=== PATIENT | female | born 1965 | race Hispanic/Latino ===

== ENCOUNTER 2025-02-24 16:02 | Observation (INO) | payer BC ==
[~2025-02-24] VITALS: Ht 162.6 cm; Wt 67.4 kg
--- NOTE | 2025-02-24 16:45 | ERN ---
ED Note History of Present Illness Stated Complaint: ABDOMINAL PAIN Chief Complaint: Abdominal Pain Time Seen by MD: 16:09 Dictation: PATIENT IS A 60-YEAR-OLD FEMALE COMING IN TODAY WITH COMPLAINTS OF ACUTE ONSET OF EPIGASTRIC PAIN THAT RADIATES TO BILATERAL UPPER AND LOWER QUADRANTS, ONSET WAS YESTERDAY WHILE SHE WAS [place] [facility] [place] STATES SHE LEFT PANAMA AND DROVE TO THE [facility] AND THE PAIN CONTINUED TO GET WORSE. SHE DENIES CHEST PAIN BACK PAIN NO SOB. STATES SHE DOES HAVE A HISTORY OF DIVERTICULOSIS. HAS NOT TAKEN ANYTHING PRIOR TO ARRIVAL FOR PAIN IS ONLY HERE VISITING, LIVES IN [place]. Allergies: Coded Allergies: codeine (Unverified Allergy, Unknown, ITCHING, 02/24/25) Home Meds Active Scripts Cefdinir (Cefdinir) 300 Mg Capsule, 1 CAP PO BID for 5 Days, #10 CAP 0 Refills Prov:DAREN RICHARDSON [employer]ES [employer]SULT[employer] 02/26/25 Reported Medications Rosuvastatin Calcium (Rosuvastatin Calcium) 10 Mg Tablet, 10 MG PO HS, TAB 02/24/25 Past Medical History Past Medical History: No Pertinent History Surgical History: Hysterectomy, BTL Surgical History Other: NECK CYST REMOVAL, BREAST IMPLANTS History: Not Applicable RN Note Reviewed/Agreed w/PFSH: Yes Review of System Dictation CONSTITUTIONAL: NEGATIVE EXCEPT FOR HPI HEAD/FACE: NEGATIVE EXCEPT FOR HPI EENT: NEGATIVE EXCEPT FOR HPI RESPIRATORY: NEGATIVE EXCEPT FOR HPI GASTROINTESTINAL/ABDOMINAL: NEGATIVE EXCEPT FOR HPI EPIGASTRIC PAIN THAT RADIA SALAS TO BILATERAL UPPER AND LOWER QUADRANTS GENITOURINARY: NEGATIVE EXCEPT FOR HPI MUSCULOSKELETAL: NEGATIVE EXCEPT FOR HPI INTEGUMENTARY: NEGATIVE EXCEPT FOR HPI NEUROLOGICAL/PSYCH: NEGATIVE EXCEPT FOR HPI HEMATOLOGIC/LYMPHATIC: NEGATIVE EXCEPT FOR HPI ALL SYSTEMS NEGATIVE, EXCEPT NOTED ABOVE. 13 POINT REVIEW OF SYSTEMS ASSESSED AND ALL NEGATIVE EXCEPT FOR ABOVE. Initial Vital Sign VS Vital Signs Date Time Temp Pulse Resp B/P (MAP) Pulse Ox O2 Delivery O2 Flow Rate FiO2 02/24/25 16:17 97.5 68 18 105/68 100 Room Air 0 02/24/25 16:40 21 Physical Exam Dictation VITAL SIGNS REVIEWED GENERAL APPEARANCE: ALERT, ORIENTED X 3, MODERATE ACUTE DISTRESS, WELL DEVELOPED, NOURISHED. HEAD AND FACE: NON-TRAUMATIC. EYES: PERRL, PINK CONJUNCTIVAS, EYELID NO TRAUMA, ANTERIOR CHAMBER WITH ARCUS SENILIS. EARS: PINNAS INTACT AND NO SIGNS OF TRAUMA OR ERYTHEMA EAR CANALS CLEAR AND NO DISCHARGE TM NO ERYTHEMA NOSE: NO DISCHARGE, NO BLEEDING. OROPHARYNX: MOUTH NORMAL, TONGUE PINK, PHARYNX CLEAR,NO ERYTHEMA, TONSILS NO EXUDATES, NO ABSCESSES NOTED, MUCOUS MEMBRANE MOIST NECK: SUPPLE, NON-TENDER, NO THYROMEGALY, NO MASSES, NO JVD, NO BRUITS BREAST:DEFERRED CHEST:NO TENDERNESS, NO CREPITUS, NO PARADOXICAL MOVEMENT, NO RETRACTIONS LUNGS:CLEAR, WELL-VENTILATED, SYMMETRIC, NO RALES, NO WHEEZING, NO RHONCHI, NO STRIDOR, GOOD BREATH SOUNDS BILATERALLY HEART: REGULAR RATE, REGULAR RHYTHM, NO MURMUR, NO GALLOPS VASCULAR: NO PERIPHERAL EDEMA, ABDOMEN: SOFT, POSITIVE BOWEL SOUNDS, NONDISTENDED, NO GUARDING, MODERATE EPIGASTRIC AND LEFT LOWER QUADRANT PAIN TENDERNESS WITH PALPATION. RECTAL: DEFERRED GENITAL: DEFERRED NEUROLOGICAL: NORMAL SPEECH, MOTOR FUNCTION INTACT, SENSORY FUNCTION INTACT MUSCULOSKELETAL: NECK NONTENDER, FULL RANGE OF MOTION, BACK NONTENDER, FULL RANGE OF MOTION, EXTREMITIES: NONTENDER, FULL RANGE OF MOTION SKIN: COLOR PINK, DRY, NO TURGOR, NO RASH, NO LACERATIONS, NO ABRASIONS, NO CONTUSIONS. LYMPHATIC: DEFERRED Results (Laboratory/Radiology) Laboratory/Radiology PATIENT: EJ DOMÍNGUEZ MR#: [id number] : 1965 SEX: F AGE: 60 LOCATION: [facility] ORDER [id number] STATUS: [facility] REPORT#: [id number] SERVICE 1642 REASON: EPIGASTRIC AND LEFT LOWER QUADRANT PAIN. HISTORY OF DIVERTICULITIS ORDERING PHYSICIAN: BUBBA DANGELO NP PROCEDURE: ABD PEL W - CT ABDOMEN/PELVIS W/CONTRAST CT ABDOMEN/PELVIS W/CONTRAST CLINICAL HISTORY: EPIGASTRIC AND LEFT LOWER QUADRANT PAIN. HISTORY OF DIVERTICULITIS COMPARISON: None TECHNIQUE: Sequential axial images of abdomen and pelvis with 75 mL of Omnipaque 350 IV contrast with sagittal and coronal reconstructions. CT was performed with one or more of the following dose reduction techniques: automated exposure control, adjustment of the mA and/or kV according to patient size, or use of iterative reconstruction technique. FINDINGS: There is mild dependent atelectasis in lung bases. The liver and spleen gallbladder pancreas and adrenal glands and kidneys and bladder are unremarkable. There is no identified bowel obstruction. There is moderate fecal material in the colon. The appendix is grossly enlarged but appears to be fecal filled with no adjacent inflammatory stranding or obvious wall and flanks. There are scattered sigmoid colon diverticula with no acute inflammatory changes. The uterus is surgically absent. Incidental note is made of bilateral gluteal implants. There is no free air or free fluid. There is no bulky abdominal or retroperitoneal lymphadenopathy. Note is made of bilateral pars defects at L5 with grade 1 anterolisthesis of L5 on S1. IMPRESSION: Constipation. Mild sigmoid diverticulosis. Change prior hysterectomy. Bilateral gluteal implants. Grossly enlarged but the fecal filled appendix with no adjacent inflammatory stranding to suggest acute appendicitis. Labs Reviewed?: Yes EKG Comment: EKG sinus bradycardia/heart rate 54/axis normal/no ectopy ED Course ED Course 1850/patient remains acutely tender to periumbilical and right lower quadrant [place]. A [id number] demonstrates a grossly enlarged appendix without stranding. We will give Zosyn 3.375 and we will follow up with Dr. Kiki Sher/general surgeon. 1899/spoke with , reviewed labs physical exam and CT. He said to treat as acute appendicitis recommended broad-spectrum antibiotics, NPO after midnight and anticipate appendectomy in the morning. This was expressed to patient and she agreed with care 1914/spoke with Demian Zuleta [facility] hospitalist and reviewed CAT scans labs and my discussion with the surgeon he agreed to admit. Medical Decision Making MDM MDM: Differential diagnosis: Gastritis versus diverticulitis/pancreatitis/appendicitis/urinary tract infection/hernia/electrolyte imbalance/dehydration/ACS/AMI Rationale: Tests considered and ordered secondary to shared decision making include: labs, ECG and radiology Previous outside records reviewed: Old ER visits. Risk of complication and/or morbidity or mortality of patient management: Moderate Medications-Per medication reconciliation Need for hospitalization: Patient does meet criteria for hospitalization. Patie nt will need acute appendectomy tomorrow Need for emergency major/minor surgery: Acute appendectomy tomorrow There are no social concerns with this patient. Prescription drug management Prescriptions will include symptomatic care Patient's prior external medical records from other ER visits were reviewed by me as indicated. Prior testing and results from previous visits were reviewed. Prior tests were taken into account with medical decision making and resource utilization, independent historian/historians were used to obtain complete medical history. I independently interpreted the test that were performed, results were reviewed by me and considered findings on radiology if ordered. Medical management and examination interpretation discussions were had by me with other qualified healthcare professionals as indicated for the patient's care. DX & DISP Disposition: Inpatient Decision to Admit Time: 19:06 Departure Impression: Primary Impression: Acute appendicitis Condition: Stable Scripts Cefdinir (Cefdinir) 300 Mg Capsule 1 CAP PO BID for 5 Days, #10 CAP 0 Refills Prov: DAREN RICHARDSON NP 02/26/25 Time of Disposition: 19:08 I have reviewed the case, and I agree with, Diagnosis and Plan I performed the substantive portion of the visit. I have reviewed and personally made and approve the management plan that is documented in the notes by myself or the THELMA. I acknowledge full responsibility for the patient's management plan. BUBBA DANGELO NP Feb 24, 2025 16:45 GAURAV RICHARDS MD Mar 06, 2025 18:42
--- NOTE | 2025-02-24 16:50 | NUR ---
PENDING GFR RESULTS, IV SITE, & CONSENT FOR CT EXAM.
[2025-02-24] MEDS: 0.9%NACL 1000ML 1,000 ML IV ONE (16:58)
[2025-02-24] MEDS: FAMOTIDINE 20MG TAB PO ONE (16:58)
[2025-02-24] MEDS: ketOROlac 30MG VIAL (30MG/ML) IVP ONE (16:58)
[2025-02-24 17:01] LABS: APPEARANCE,URINE CLEAR (CLEAR); BILIRUBIN,URINE NEGATIVE (NEGATIVE); COLOR,URINE YELLOW (YELLOW); GLUCOSE, URINE (UA) NEGATIVE (NEGATIVE); KETONES,URINE NEGATIVE (NEGATIVE); LEUKOCYTE ESTERASE ,URINE 75 Leu/uL (NEGATIVE); NITRATE,URINE NEGATIVE (NEGATIVE); OCCULT BLOOD,URINE NEGATIVE (NEGATIVE); PH,URINE 5.5 (5.0-8.0); PROTEIN,URINE NEGATIVE (NEGATIVE); UROBILINOGEN,URINE 0.2 mg/dL (0.2-1.0)
[2025-02-24 17:01] LABS: BASOPHILS # (AUTO) 0.04 K/uL (0.00-0.20); BASOPHILS % (AUTO) 0.4 % (0.0-5.0); HEMATOCRIT 35.9 % (36-48); IMMATURE GRANULOCYTE ABSOLUTE 0.03 K/uL (0-1); LYMPHOCYTES # (AUTO) 2.8 K/uL (1.0-4.8); LYMPHOCYTES % (AUTO) 27.5 % (21.0-51.0); MEAN CORPUSCULAR HEMOGLOBIN 30.1 pg (27.0-33.0); MEAN CORPUSCULAR HGB CONC 33.1 g/dL (32.0-36.0); MEAN CORPUSCULAR VOLUME 90.9 fL (79-99); MONOCYTES # (AUTO) 0.5 K/uL (0.1-1.0); MONOCYTES % (AUTO) 4.8 % (3.0-13.0); NEUTROPHILS # (AUTO) 6.7 K/uL (1.8-7.7); PLATELET COUNT (AUTO) 207 K/uL (130-400); RED BLOOD CELL COUNT(AUTO) 3.95 MIL/uL (4.00-5.50); RED CELL DISTRIBUTION WIDTH 13.2 % (11.0-15.5); WHITE BLOOD COUNT (AUTO) 10.2 K/uL (4.8-10.8)
[2025-02-24 17:03] LABS: ADD UA MICROSCOPIC YES
[2025-02-24] MEDS ORDERED: IOHEXOL-350 75 ML VIAL IV ONE (17:03)
[2025-02-24 17:05] LABS: BACTERIA,URINE RARE /HPF (None Seen); MUCUS,URINE FEW LPF (None Seen); SQUAMOUS EPITHELIAL CELL,UR RARE /HPF (0-2)
[2025-02-24 17:09] LABS: CREATININE 0.7 mg/dL (0.5-1.0); POTASSIUM 3.8 mmol/L (3.5-5.1)
--- NOTE | 2025-02-24 18:40 | HMCIMG ---
CT ABDOMEN/PELVIS W/CONTRAST CLINICAL HISTORY: EPIGASTRIC AND LEFT LOWER QUADRANT PAIN. HISTORY OF DIVERTICULITIS COMPARISON: None TECHNIQUE: Sequential axial images of abdomen and pelvis with 75 mL of Omnipaque 350 IV contrast with sagittal and coronal reconstructions. CT was performed with one or more of the following dose reduction techniques: automated exposure control, adjustment of the mA and/or kV according to patient size, or use of iterative reconstruction technique. FINDINGS: There is mild dependent atelectasis in lung bases. The liver and spleen gallbladder pancreas and adrenal glands and kidneys and bladder are unremarkable. There is no identified bowel obstruction. There is moderate fecal material in the colon. The appendix is grossly enlarged but appears to be fecal filled with no adjacent inflammatory stranding or obvious wall and flanks. There are scattered sigmoid colon diverticula with no acute inflammatory changes. The uterus is surgically absent. Incidental note is made of bilateral gluteal implants. There is no free air or free fluid. There is no bulky abdominal or retroperitoneal lymphadenopathy. Note is made of bilateral pars defects at L5 with grade 1 anterolisthesis of L5 on S1. IMPRESSION: Constipation. Mild sigmoid diverticulosis. Change prior hysterectomy. Bilateral gluteal implants. Grossly enlarged but the fecal filled appendix with no adjacent inflammatory stranding to suggest acute appendicitis.
[2025-02-24] MEDS: morPHINE 2 MG SYG IVP ONE (18:46)
[2025-02-24] MEDS ORDERED: hydrALAZine 20MG/ML VIAL IV PRN (19:30)
[2025-02-24] MEDS ORDERED: acetaMINOPHEN 650 MG SUPPOSITORY RC PRN (19:30)
[2025-02-24] MEDS ORDERED: ondanSETRON 4MG INJ IV PRN (19:30)
--- NOTE | 2025-02-24 19:42 | HP ---
History of Present Illness Reason for Visit: abdominal pain History of Present Illness Ms. Moreno is a 60-year-old female that was seen and examined today on 02/24/2025. Patient is a good historian of personal health. Patient states that she came to the emergency department with a chief complaint of abdominal pain. Onset was 02/23/2025 at 8:00 p.m.. Location initially was periumbilical but pain traveled down to right lower quadrant. Duration is on a nd off. Character is described as a dull ache that turned into a sharp pain. Symptoms are aggravated with movement. There was no alleviating factors. Patient reports associated nausea without any vomiting. Today in the emergency department CBC unremarkable, chemistry unremarkable, urinalysis positive for leukocyte esterase and WBCs 2-5, CT of abdomen and pelvis shows constipation, acute appendicitis. Emergency room physician contacted general surgeon on-call who requested patient be [facility]. Follows for surgical intervention tomorrow 02/25/2025. Past Medical History ADDITIONAL PAST MEDICAL HISTORY: [Denies] SOCIAL HISTORY: [Patient smokes one pack of cigarettes daily and has been smoking like this for 35 years. Patient drinks alcohol about once a week usually one vodka martini. Patient denies drug use. Patient lives with the Gian moreno. Patient has good access to health care through her insurance. Patient denies difficulty paying her bills. Patient is retired from the [employer].] SURGICAL HISTORY: [Hysterectomy, BTL, gluteal implants, abdominoplasty, liposuction, right wrist surgery, neck cyst excision] Review of Systems General: No Fever, No Chills, No Night Sweats, No Fatigue, No Malaise, No Appetite, No Other HEENT: No Head Aches, No Visual Changes, No Eye Pain, No Ear Pain, No Dysphasia, No Sinus Congestion, No Post Nasal Drip, No Sore Throat, No Other Pulmonary: No Dyspnea, No Cough, No Pleuritic Chest Pain, No Other Cardiovascular: No: Chest Pain, Palpitations, Orthopnea, Paroxysmal Noc. Dyspnea, Edema, Lt Headedness, Other Gastrointestinal: Nausea, Abdominal Pain; No: Vomiting, Diarrhea, Constipation, Melena, Hematochezia, Other Genitourinary: No Dysuria, No Frequency, No Incontinence, No Hematuria, No Retention, No Other Musculoskeletal: No: other, neck pain, shoulder pain, arm pain, back pain, hand pain, leg pain, foot pain Skin: No Urticaria, No Rash, No Other Neurological: No: Weakness, Numbness, Incoordination, Change in speech, Confusion, Seizures, Other Allergies: Coded Allergies: codeine (Unverified Allergy, Unknown, ITCHING, 02/24/25) Scheduled Rosuvastatin Calcium (Rosuvastatin Calcium), 10 MG PO HS, (Reported) Exam Vital Signs Vital Signs Date Time Temp Pulse Resp B/P (MAP) Pulse Ox O2 Delivery O2 Flow Rate FiO2 02/24/25 16:40 98.2 65 16 108/64 99 Room Air* 0 21 General Appearance: Alert, Oriented X3, Cooperative, mild distress HEENT: Atraumatic, EOMI Respiratory: Clear to auscultation, Normal air movement, NL respiratory effort Cardiovascular: Regular rate, Regular rhythm, Normal S1, Normal S2 Abdominal: Normal bowel sounds, Soft, Other (Positive right lower quadrant tenderness) Extremities: No clubbing, No edema Skin: No rashes, No breakdown, No significant lesion Neuro: Normal gait, Normal speech, Strength at 5/5 X4 ext, Sensation intact, Cranial nerves 3-12 NL Psych/Mental Status: Mental status NL, Mood NL, Thoughts/Content NL Assessment/Plan ASSESSMENT: [ Acute appendicitis, POA Suspected UTI, POA Constipation, POA Tobacco dependence, POA] PLAN: [ Admit patient to medical floor. Patient will be followed by General surgery Service. Keep patient NPO. Check preprocedure labs, CBC, BMP, magnesium, phosphorus, PTT, UA, type and screen, EKG, CXR IV fluid maintenance therapy lactated Ringer's at 75 mL/HR Empiric antibiotic therapy with Zosyn Check urine culture, follow up with the results Enemas twice daily Consult patient on smoking cessation. Offered patient transdermal nicotine patch which she declined at this time but states she might be more receptive to it if she has to be admitted more days. GI prophylaxis, famotidine DVT prophylaxis, Yoseph's and SCDs avoid anticoagulation at this time due to impending surgical evaluation. ADVANCED CARE PLANNING 1. Which of the following were discussed? Hospice Care - Yes Therapeutic options - Yes Advance Directives - Yes -patient states she does not have any advance directives in place at this time, however has been Gian can make decisions for her if she becomes unable. Other discussions - patient wishes to remain a full code at this time 2. Discussed with who? Patient 3. Voluntary nature of this service was explained to the patient? Yes 4. Amount of time spent - ___ 16 minutes ____ 5. Reviewed by Physician? (if this service was performed by NPP) Yes This document was generated in part using voice recognition software, occasional wrong word or sound alike substitutions may have occurred due to the inherent limitations of voice recognition software. Read the chart carefully and recognize using context, where the substitutions have occurred. Although every effort was made to edit the content, gifts officer and typing errors may occur ATTESTATION BY PHYSICIAN I have seen and examined the patient. I reviewed the documentation, medical decision making, and treatment plan as noted by the mid-level provider above. I agree with the findings and plan of care. ERLINDA LANDERS [facility] Feb 24, 2025 19:42
[2025-02-24] MEDS: ZOSYN 3.375GM +NS 50ML IVPB ONE (20:06)
[2025-02-24] MEDS: ZOSYN 3.375GM +NS 50ML IV SCH (20:10)
[2025-02-24] MEDS: LACTATED RINGERS 1000ML 1,000 ML IV SCH (20:14)
[2025-02-24 21:00] VITALS: BP 99/49; PULSE 49; RESP 18; TEMP 98
[2025-02-24] MEDS ORDERED: ROSU10TA72 PO (21:23)
--- NOTE | 2025-02-24 21:30 | NUR ---
T[employer] ENEMAS PT GIVEN ENEMA HAD 4 BOWEL MOVEMENTS.
[2025-02-24 23:57] VITALS: BP 98/47; PULSE 51; RESP 18; TEMP 97.7
[2025-02-25] VITALS (30 sets, daily range): BP systolic 90–139; BP diastolic 35–82; PULSE 42–68; RESP 13–22; TEMP 97–98.2; O2SAT 96–97
[2025-02-25] MEDS ORDERED: morPHINE 2 MG SYG IVP PRN
[2025-02-25] MEDS ORDERED: hydroMORPHone 0.5 MG SYG (0.5MG/0.5ML) IVP PRN (01:00)
[2025-02-25 06:33] LABS: BASOPHILS # (AUTO) 0.02 K/uL (0.00-0.20); BASOPHILS % (AUTO) 0.4 % (0.0-5.0); EOSINOPHILS # (AUTO) 0.08 K/uL (0.00-0.70); EOSINOPHILS % (AUTO) 1.5 % (0.0-8.0); HEMATOCRIT 32.5 % (36-48); IMMATURE GRANULOCYTE ABSOLUTE 0.01 K/uL (0-1); LYMPHOCYTES # (AUTO) 2.4 K/uL (1.0-4.8); LYMPHOCYTES % (AUTO) 44.1 % (21.0-51.0); MEAN CORPUSCULAR HEMOGLOBIN 30.4 pg (27.0-33.0); MEAN CORPUSCULAR HGB CONC 33.5 g/dL (32.0-36.0); MEAN CORPUSCULAR VOLUME 90.5 fL (79-99); MONOCYTES # (AUTO) 0.3 K/uL (0.1-1.0); NEUTROPHILS # (AUTO) 2.6 K/uL (1.8-7.7); NEUTROPHILS % (AUTO) 47.8 % (40.0-77.0); PLATELET COUNT (AUTO) 161 K/uL (130-400); RED BLOOD CELL COUNT(AUTO) 3.59 MIL/uL (4.00-5.50); RED CELL DISTRIBUTION WIDTH 13.2 % (11.0-15.5); WHITE BLOOD COUNT (AUTO) 5.5 K/uL (4.8-10.8)
[2025-02-25 06:41] LABS: CREATININE 0.7 mg/dL (0.5-1.0); MAGNESIUM 1.8 mg/dL (1.80-2.40); PHOSPHORUS 3.6 mg/dL (2.5-4.9); POTASSIUM 3.7 mmol/L (3.5-5.1)
[2025-02-25 06:43] LABS: PROTHROMBIN TIME 10.6 SEC (9.6-11.6)
[2025-02-25 06:44] LABS: PARTIAL THROMBOPLASTIN TIME 29.9 SEC (26.3-35.5)
--- NOTE | 2025-02-25 07:55 | EKG ---
[facility] Test Date: 2025-02-24 Test Time: 17:12:46 Pat Name: EJ DOMÍNGUEZ Department: [facility] Room: 309 1 Gender: F Toddler Caregiver: [id number] : 1965 Requested By: BUBBA DANGELO Order Number: [id number] Reading MD: Ashley Barnard Measurements Intervals [place] Rate: 54 P: 29 AK: 158 QRS: -18 QRSD: 75 T: -2 QT: 451 QTc: 427 Interpretive Statements Sinus rhythm No previous ECG available for comparison Electronically Signed On 02-25-2025 12:27:16 CDT by Ashley Barnard Please click the below link to view image of tracing.
[2025-02-25] MEDS: FAMOTIDINE 20MG VIAL IV SCH (09:16)
[2025-02-25] MEDS: ketOROlac 15MG/ML VIAL (15MG/ML) IV PRN (09:17)
--- NOTE | 2025-02-25 09:17 | PN ---
[facility] PROGRESS NOTE Date of Service: Feb 25, 2025 Time of Service: 09:10 SUBJECTIVE: [ ] This is a 60-year-old female that was admitted on 02/24/2025 presents in ED with chief complaint of abdominal pain location. Umbilical radiates to left lower quad. ER workup imaging reveal acute appendicitis. General surgeon was evaluated by surgeon we will scheduled for lap appendectomy. REVIEW OF SYSTEMS CONSTITUTIONAL: Denies fevers, chills, or night sweats. No unintentional weight loss reported. NEUROLOGICAL: Denies headache, amaurosis fugax, motor weakness, sensory defic it, vertigo/spinning sensation, gait abnormalities, or tremors. ENT: No hearing loss, otalgia, otorrhea, rhinitis, rhinorrhea, hoarseness, or sore throat. CARDIOVASCULAR: Denies any exertional angina, dyspnea on exertion, orthopnea, paroxysmal nocturnal dyspnea, palpitations, life-threatening arrhythmias, claudication. PULMONARY: Denies any shortness of breath, cough, phlegm/sputum, hemoptysis, pleuritic chest pain. SLEEP: Denies morning headaches, daytime somnolence or napping. Denies difficulty falling asleep, staying asleep, waking from sleep. Denies knowledge of snoring. GASTROINTESTINAL: Denies any type of dysphagia to either liquids or solids. Denies nausea, vomiting, pyrosis, early satiety, abdominal pain, diarrhea, constipation, or changes in stool consistency or caliber. Denies coffee-ground emesis, hematemesis, hematochezia, or melanotic stools. GENITOURINARY: Denies frequency, urgency, nocturia, hematuria or incontinence (Storage/Irritative symptoms.) Low urinary stream, straining to void, urinary intermittency or hesitancy, splitting of the voiding stream, terminal dribbling. ENDOCRINOLOGIC: Denies polyuria, polydipsia, polyphagia or heat/cold intolerances. HEMATOLOGIC: Denies thrombophilia/previous clots, or coagulopathy/bleeding disorders. ONCOLOGIC: Denies personal history of malignancy. DERMATOLOGIC: Denies rashes or pruritus. PSYCHIATRIC: Denies any suicidal or homicidal ideation. Denies hallucinations. PHYSICAL EXAM GENERAL APPEARANCE: The patient is awake, alert, and oriented, in no acute cardiopulmonary distress. NEUROLOGICAL: Cranial nerves II-XII grossly intact. Motor is 5/5 in bilateral upper and lower extremities proximal to distal. No sensory deficits. HEENT: Face is symmetric. Pupils are equal and reactive. Extraocular movements are intact. NECK: Supple. No JVD. No thyromegaly. No submental, submandibular, pre- /postauricular, occipital or supraclavicular lymphadenopathy. CHEST: Normal chest expansion. No Telemetry. LUNGS: Absence of any rales, rhonchi or any wheezing. CARDIOVASCULAR: Regular. S1 and S2 normal. No appreciable rubs, murmurs or gallops. ABDOMEN: Soft, nontender, and nondistended. There is no rebound, voluntary guarding, or rigidity. : Deferred. No Louise. EXTREMITIES: Non-edematous and not cyanotic. No clubbing. Good capillary refill. SKIN: No skin breakdown. Vital Signs (last 8hr) Date Time Temp Pulse Resp B/P (MAP) Pulse Ox O2 Delivery O2 Flow Rate FiO2 02/25/25 08:02 99/55 02/25/25 07:49 98.1 49 22 102/35 96 02/25/25 06:49 68 101/53 02/25/25 04:00 97.9 47 18 90/45 97 Room Air LABS: Laboratory: Test 02/25/25 05:53 02/24/25 16:54 02/24/25 16:40 Range/Units White Blood Count 5.5 # 4.8-10.8 K/uL Red Blood Count 3.59 L 4.00-5.50 MIL/uL Hemoglobin 10.9 L 12.0-16.0 g/dL Hematocrit 32.5 L 36-48 % Mean Corpuscular Volume 90.5 79-99 fL Mean Corpuscular Hemoglobin 30.4 27.0-33.0 pg Mean Corpuscular Hemoglobin Concent 33.5 32.0-36.0 g/dL Red Cell Distribution Width 13.2 11.0-15.5 % Platelet Count 161 130-400 K/uL Mean Platelet Volume 10.8 H 7.5-10.5 fL Immature Granulocyte % (Auto) 0.2 0-1 % Neutrophils (%) (Auto) 47.8 40.0-77.0 % Lymphocytes (%) (Auto) 44.1 21.0-51.0 % Monocytes (%) (Auto) 6.0 3.0-13.0 % Eosinophils (%) (Auto) 1.5 0.0-8.0 % Basophils (%) (Auto) 0.4 0.0-5.0 % Neutrophils # (Auto) 2.6 1.8-7.7 K/uL Lymphocytes # (Auto) 2.4 1.0-4.8 K/uL Monocytes # (Auto) 0.3 0.1-1.0 K/uL Eosinophils # (Auto) 0.08 0.00-0.70 K/uL Basophils # (Auto) 0.02 0.00-0.20 K/uL Absolute Immature Granulocyte (auto 0.01 0-1 K/uL Nucleated Red Blood Cells 0.0 0.0-0.19 % Prothrombin Time 10.6 9.6-11.6 SEC Prothromb Time International Ratio 1.00 0.85-1.15 Activated Partial Thromboplast Time 29.9 26.3-35.5 SEC Sodium Level 142 136-145 mmol/L Potassium Level 3.7 3.5-5.1 mmol/L Chloride Level 107 101-111 mmol/L Carbon Dioxide Level 28 21-32 mmol/L Blood Urea Nitrogen 12 7-18 mg/dL Creatinine 0.7 0.5-1.0 mg/dL Glomerular Filtration Rate Calc 100 >90 mL/min Random Glucose 80 70-105 mg/dL Total Calcium 8.5 8.5-10.1 mg/dL Phosphorus Level 3.6 2.5-4.9 mg/dL Magnesium Level 1.80 1.80-2.40 mg/dL Troponin I High Sensitivity < 4 L 4-50 ng/L Lipase 30 16-77 U/L Urine Color YELLOW YELLOW Urine Appearance CLEAR CLEAR Urine pH 5.5 5.0-8.0 Urine Specific [place] 1.026 1.001-1.031 Urine Protein NEGATIVE NEGATIVE mg/dL Urine Glucose (UA) NEGATIVE NEGATIVE mg/dL Urine Ketones NEGATIVE NEGATIVE mg/dL Urine Occult Blood NEGATIVE NEGATIVE Urine Nitrate NEGATIVE NEGATIVE Urine Bilirubin NEGATIVE NEGATIVE mg/dL Urine Urobilinogen 0.2 0.2-1.0 mg/dL Urine Leukocyte Esterase 75 H NEGATIVE Higinio/uL Urine RBC 2-5 H 0-1 /HPF Urine WBC 2-5 H 0-1 /HPF Urine Squamous Epithelial Cells RARE 0-2 /HPF Urine Bacteria RARE None Seen /HPF Urine Hyaline Casts 2-5 H 0-1 /LPF /LPF Current Medications Medications (Trade) Dose Ordered Sig/[place] Route PRN Reason Start Time Stop Time Status Last Admin Dose Admin Acetaminophen (TYLenol 650MG SUPPOSITORY) 650 mg Q6H PRN RC MILD PAIN (1-3) 02/24/25 19:30 03/26/25 19:29 Famotidine (Pepcid 20mg Vial) 20 mg DAILY IV 02/25/25 09:00 03/27/25 08:59 Hydralazine HCl (APRESOLine 20MG INJ) 10 mg Q6H PRN IV For:SBP above 160;DBP above 90 02/24/25 19:30 03/26/25 19:29 Hydromorphone HCl (DiLAUDid 0.5MG INJ) 0.2 mg Q4H PRN IVP SEVERE PAIN (7-10) 02/25/25 01:00 03/02/25 00:59 Ketorolac Tromethamine (toRADol) 15 mg Q6H PRN IV MODERATE PAIN (4-6) 02/25/25 07:30 03/02/25 07:29 Lactated Ringer's 1,000 ml @ 75 mls/hr [id number] IV 02/24/25 19:30 03/26/25 19:29 02/24/25 20:14 75 MLS/HR Morphine Sulfate (morPHINE 2MG SYG) 2 mg Q4H PRN IVP SEVERE PAIN (7-10) 02/25/25 00:00 02/25/25 00:35 DC Ondansetron HCl (zoFRAN 4MG INJ) 4 mg Q6H PRN IV NAUSEA/VOMITING 02/24/25 19:30 03/26/25 19:29 Piperacillin Sod/ Tazobactam Sod (Zosyn 3.375gm+NS 50ml) 3.375 gm Q8H IV 02/24/25 19:30 03/06/25 19:29 02/25/25 04:21 3.375 GM DIAGNOSTICS / RADIOLOGY: [ ] ASSESSMENT: Acute appendicitis, POA Suspected UTI, POA Constipation, POA Tobacco dependence, POA] PLAN: [ ] Admit: Medical-surgical floor condition: Guarded Status: Full code IVF: LR at 75 mL/hour. Diet NPO Consultants general surgeon Antibiotics: Zosyn IV 3.375 g every8 hours. Procedure appendectomy scheduled for today Encouraged patient early ambulation and deep breathing exercise postprocedure. Labs cbc, cmp, mag+ in a.m. Replace electrolytes as needed as per protocol to keep potassium above 4.0 magnesium 2.0. resume home medications. Smoking cessation was discussed PRN: MEDICATIONS Pain management: Dilaudid 0 point5 mg every4 hours for severe pain and [id number] mg as needed for moderate pain Supportive measures: DVT ppx, GI ppx all questions answered time spent: > 35 min Supervising MD: Dr. Apodaca c/d This document was generated in part using voice recognition software, occasional wrong word or sound alike substitutions may have occurred due to the inherent limitations of voice recognition software. Read the chart carefully and recognize using context, where the substitutions have occurred. Although every effort was made to edit the content, automatic packer operator and typing errors may occur ATTESTATION BY PHYSICIAN I have seen and examined the patient. I reviewed the documentation, medical decision making, and treatment plan as noted by the mid-level provider above. I agree with the findings and plan of care. DORIAN APODACA MD, ELIZABETH NP Feb 25, 2025 09:17
[2025-02-25] MEDS ORDERED: MAGNESIUM 2GM PREMIX 50ML 50 ML IV PRN (09:30)
[2025-02-25] MEDS ORDERED: PoTASSium chloRIDE 20MEQ/100ML 100 ML IV PRN (09:30)
[2025-02-25] MEDS ORDERED: MIDAZOLAM HCL 1 MG/ML 2ML VIAL ONE (10:34)
[2025-02-25] MEDS ORDERED: proPOFol 10 MG/ML 20ML VIAL IV ONE (10:34)
[2025-02-25] MEDS ORDERED: FENTanyl CITRate PF 50 MCG/1 ML 2ML VIAL ONE ×2 (10:34→12:02)
[2025-02-25] MEDS ORDERED: rocuRONium bROMide 10MG/1ML 5ML VL ONE (10:40)
[2025-02-25] MEDS ORDERED: ondanSETRON 4MG INJ ONE (10:42)
[2025-02-25] MEDS ORDERED: phenylEPHRINE HCL 10 MG/ML 1ML VIAL IV ONE (11:18)
[2025-02-25] MEDS: BUPIvacaine/PF 0.5% 30ML VIAL ONE (11:33)
[2025-02-25] MEDS ORDERED: NEOSTIGMINE METHYLSULFATE 1MG/ML IV ONE (11:52)
[2025-02-25] MEDS ORDERED: GLYCOPYRROLATE 0.2 MG/ML 5 ML VIAL ONE (11:52)
[2025-02-25] MEDS ORDERED: dexaMETHasone SOD PHOSPHATE 10MG/ML 1ML VIAL ONE (12:00)
--- NOTE | 2025-02-25 12:17 | NUR ---
DCP -- Home Patient is in surgery. Melissa Dejesus, Daughter [phone] is available to complete interview. [facility] patient is currently visiting family in the [place], lives in [place] with Gian Katz, Spouse [phone] in a house. 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 Denies medical devices. Denies home health services, home care provider or dialysis. PCP - [facility] [place] [facility] - [address] Upon discharge, Melissa Dejesus, Daughter [phone]/Gian Katz, Spouse [phone] and assist with care, as needed. Medical records request information. Addendum: 02/25/25 at 1224 by MAURI BOND RN CM Amended: Links added.
--- NOTE | 2025-02-25 12:21 | CONS ---
GENERAL SURGERY CONSULTATION NOTE Date/Time Patient Seen: [ ] Requesting Physician: [ ] Reason for Consultation: [ ] History of Present Illness: 60-year-old female it started with the abdominal pain Tuesday night at the epigastrium and then proceeded to radiate to both lower quadrants. Now more localized to the right side. With some nausea but no vomiting. Past Medical History: High cholesterol Past Surgical History: Tummy tuck, buttocs implants, cervical cone, hysterectomy, wrist surgery Habits: Daily smoker one pack a day [Denies] alcohol consumption. [Denies] illicit drug use Current Medications Medications (Trade) Dose Ordered Sig/Keya Route Start Time Stop Time Status Last Admin Dose Admin Atorvastatin Calcium (LIPItor 40MG) 40 mg HS PO 02/25/25 21:00 03/27/25 20:59 Famotidine (Pepcid 20mg Vial) 20 mg DAILY IV 02/25/25 09:00 03/27/25 08:59 02/25/25 09:16 20 MG Lactated Ringer's 1,000 ml @ 75 mls/hr [id number] IV 02/24/25 19:30 03/26/25 19:29 02/24/25 20:14 75 MLS/HR Piperacillin Sod/ Tazobactam Sod (Zosyn 3.375gm+NS 50ml) 3.375 gm Q8H IV 02/24/25 19:30 03/06/25 19:29 02/25/25 04:21 3.375 GM Review of Systems: Negative except as per HPI. No chest pain. No shortness of breath Physical Examination: GENERAL: [No acute distress.] HEAD: [Normal with no signs of head trauma.] EYES: [PERRLA, NECK: Trachea midline LUNGS: No distress HEART: [Normal rate and rhythm. ABD: [Bowel sounds normal, soft, right lower quadrant is tender with positive rebound EXT: [No edema.] SKIN: [No jaundice NEURO: [Awake, alert, and oriented x3. Vital Signs (last 8hr) Date Time Temp Pulse Resp B/P (MAP) Pulse Ox O2 Delivery O2 Flow Rate FiO2 02/25/25 09:20 96 Room Air* 0 21 02/25/25 08:02 99/55 02/25/25 07:49 98.1 49 22 102/35 96 02/25/25 06:49 68 101/53 Laboratory: [ ] Hematology Labs: Test 02/25/25 05:53 Range/Units White Blood Count 5.5 # 4.8-10.8 K/uL Red Blood Count 3.59 L 4.00-5.50 MIL/uL Hemoglobin 10.9 L 12.0-16.0 g/dL Hematocrit 32.5 L 36-48 % Mean Corpuscular Volume 90.5 79-99 fL Mean Corpuscular Hemoglobin 30.4 27.0-33.0 pg Mean Corpuscular Hemoglobin Concent 33.5 32.0-36.0 g/dL Red Cell Distribution Width 13.2 11.0-15.5 % Platelet Count 161 130-400 K/uL Mean Platelet Volume 10.8 H 7.5-10.5 fL Immature Granulocyte % (Auto) 0.2 0-1 % Neutrophils (%) (Auto) 47.8 40.0-77.0 % Lymphocytes (%) (Auto) 44.1 21.0-51.0 % Monocytes (%) (Auto) 6.0 3.0-13.0 % Eosinophils (%) (Auto) 1.5 0.0-8.0 % Basophils (%) (Auto) 0.4 0.0-5.0 % Neutrophils # (Auto) 2.6 1.8-7.7 K/uL Lymphocytes # (Auto) 2.4 1.0-4.8 K/uL Monocytes # (Auto) 0.3 0.1-1.0 K/uL Eosinophils # (Auto) 0.08 0.00-0.70 K/uL Basophils # (Auto) 0.02 0.00-0.20 K/uL Absolute Immature Granulocyte (auto 0.01 0-1 K/uL Nucleated Red Blood Cells 0.0 0.0-0.19 % Chemistry Labs: Test 02/25/25 05:53 02/24/25 16:54 Range/Units Sodium Level 142 136-145 mmol/L Potassium Level 3.7 3.5-5.1 mmol/L Chloride Level 107 101-111 mmol/L Carbon Dioxide Level 28 21-32 mmol/L Blood Urea Nitrogen 12 7-18 mg/dL Creatinine 0.7 0.5-1.0 mg/dL Glomerular Filtration Rate Calc 100 >90 mL/min Random Glucose 80 70-105 mg/dL Total Calcium 8.5 8.5-10.1 mg/dL Phosphorus Level 3.6 2.5-4.9 mg/dL Magnesium Level 1.80 1.80-2.40 mg/dL Troponin I High Sensitivity < 4 L 4-50 ng/L Lipase 30 16-77 U/L Coagulation Labs: Test 02/25/25 05:53 Range/Units Prothrombin Time 10.6 9.6-11.6 SEC Prothromb Time International Ratio 1.00 0.85-1.15 Activated Partial Thromboplast Time 29.9 26.3-35.5 SEC Diagnostics / Radiology: [Copy/Paste Echos/Imaging Report here] Assessment: Patient with early acute appendicitis. Plan: [Discussed laparoscopic appendectomy possible open. Discussed all the risks including bleeding, leak, infection, injury and potential 2nd surgery. Patient agrees to proceed. JEZ ROCKWELL MD Feb 25, 2025 12:21
--- NOTE | 2025-02-25 12:23 | OP ---
Operative Note: DATE OF PROCEDURE: 02/25/25 PROCEDURE:Laparoscopic appendectomy. ANESTHESIA: General endotracheal. PREOPERATIVE DIAGNOSIS: Appendicitis. POSTOPERATIVE DIAGNOSIS: Acute appendicitis without perforation. DEVICES LEFT IN PLACE: None. FLUID AND BLOOD PRODUCTS: Per anesthesia report. BLOOD LOSS: Minimal. SPECIMENS REMOVED: Appendix. COMPLICATIONS: None immediate. SURGEON: Jez Sher MD. DESCRIPTION OF PROCEDURE: The patient was brought to the operating room and placed on the operating table in supine position where general endotracheal anesthesia was achieved. We then proceeded to prep and drape the abdomen in sterile fashion, Created a transverse incision at the left upper quadrant under direct visu alization went in through the abdominal wall with an Optiview trocar. Once inside the abdominal cavity insufflated and obtain a pneumoperitoneum. Under direct visualization placed a origin trocar just above the umbilicus. There was significant amount of omental adhesions at the suprapubic region. This was taken down with the wound device. And once cleared I then placed another 5 mm trocar in the suprapubic position. We then proceeded to evaluate the pelvis. We evaluated the appendix and it has changes of acute appendicitis. We therefore proceeded to release the appendix from all its adhesions using blunt and sharp dissection with a LigaSure and then proceeded to create a window at the base of the appendix with a [place] dissector and divided the mesoappendix with the LigaSure device. Once the base of the appendix was free, we then proceeded to divide the appendix with the E chelon blue load stapler. Placed the appendix into the Endo Catch bag. We inspected the pelvis again and we did not find any signs of an abscess or any other signs of infection. Then, under direct visualization, we proceeded to remove our trocars and there was no bleeding from the abdominal wall. We removed the appendix from the abdomen using the EndoCatch bag and relieved the pneumoperitoneum. We closed the fascia at the umbilicus using a 0-Vicryl stitch in the [id number] fashion and then the skin was closed using a skin stapler. The patient tolerated the procedure well. I was present as well during the entire procedure. All counts were correct x 2 at the end of the procedure. JEZ SHER MD Feb 25, 2025 12:23
[2025-02-25] MEDS: ondanSETRON 4MG INJ ONE (12:49)
[2025-02-25] MEDS: metoCLOPRAmide 10 MG/2 ML VIAL ONE (12:58)
[2025-02-25] MEDS: traMADol HCL 50 MG TABLET PO PRN (15:27)
[2025-02-25] MEDS: SIMETHICONE 80 MG TAB.CHEW PO SCH (15:27)
[2025-02-25] MEDS: atorVAStatin 40 MG TABLET PO SCH (20:23)
[2025-02-25] MEDS: ibuPROFEN 800 MG TAB PO PRN (20:23)
[2025-02-26 04:04] VITALS: BP 97/54; PULSE 48; RESP 17; TEMP 97.9
[2025-02-26 05:41] LABS: BASOPHILS # (AUTO) 0.02 K/uL (0.00-0.20); BASOPHILS % (AUTO) 0.2 % (0.0-5.0); EOSINOPHILS # (AUTO) 0.01 K/uL (0.00-0.70); EOSINOPHILS % (AUTO) 0.1 % (0.0-8.0); IMMATURE GRANULOCYTE ABSOLUTE 0.05 K/uL (0-1); LYMPHOCYTES # (AUTO) 1.5 K/uL (1.0-4.8); LYMPHOCYTES % (AUTO) 14.7 % (21.0-51.0); MEAN CORPUSCULAR HEMOGLOBIN 30.2 pg (27.0-33.0); MEAN CORPUSCULAR HGB CONC 33.9 g/dL (32.0-36.0); MEAN CORPUSCULAR VOLUME 89.1 fL (79-99); MONOCYTES # (AUTO) 0.4 K/uL (0.1-1.0); MONOCYTES % (AUTO) 3.9 % (3.0-13.0); NEUTROPHILS # (AUTO) 8.3 K/uL (1.8-7.7); NEUTROPHILS % (AUTO) 80.6 % (40.0-77.0); PLATELET COUNT (AUTO) 184 K/uL (130-400); RED BLOOD CELL COUNT(AUTO) 3.48 MIL/uL (4.00-5.50); WHITE BLOOD COUNT (AUTO) 10.2 K/uL (4.8-10.8)
[2025-02-26 05:53] LABS: ALBUMIN 3.1 g/dL (3.5-5.0); BILIRUBIN,TOTAL 0.4 mg/dL (0.2-1.0); CREATININE 0.6 mg/dL (0.5-1.0); MAGNESIUM 1.9 mg/dL (1.80-2.40); POTASSIUM 4.1 mmol/L (3.5-5.1)
[2025-02-26 08:00] VITALS: BP 109/61; PULSE 48; RESP 18; TEMP 98
[2025-02-26 09:45] VITALS: O2SAT 100
--- NOTE | 2025-02-26 10:10 | EKG ---
[facility] Test Date: 2025-02-26 Test Time: 10:06:13 Pat Name: EJ DOMÍNGUEZ Department: [facility] Room: 309 1 Gender: F [employer] Integrator: [id number] : 1965 Requested By: DAREN RICHARDSON Order Number: [id number] Reading MD: Magno Yates Measurements Intervals [place] Rate: 53 P: 21 MS: 134 QRS: -6 QRSD: 76 T: 5 QT: 444 QTc: 416 Interpretive Statements Sinus bradycardia Compared to ECG 02/24/2025 17:12:46 Sinus rhythm no longer present Electronically Signed On 02-27-2025 07:03:12 CDT by Magno Yates Please click the below link to view image of tracing.
[2025-02-26] MEDS ORDERED: CEFD300C3 PO (10:27)
--- NOTE | 2025-02-26 10:30 | DS ---
Discharge Summary Hospital Course Summary: 02/25/2025 This is a 60-year-old female that was admitted on 02/24/2025 presents in ED with chief complaint of abdominal pain location. Umbilical radiates to left lower quad. ER workup imaging reveal acute appendicitis. General surgeon was evaluated by surgeon we will scheduled for lap appendectomy. 02/26/2025. Status post day one appendectomy without no complications recuperating well tolerating diet reports no nausea or vomiting. Reports having discomfort to incisions sites. Encouraged patient to continue ambulating at home and deep breathing exercise. Duxd-qqy-ecotiwf pain medication Tylenol as needed every 4 hours for pain. Patient will be discharged on oral antibiotics cefdinir 300 mg p.o. b.i.d. for five days advised patient to complete full cycle of antibiotics. Patient to follow-up with general surgeon in one-week avoid heavy lifting gradient than 10 lb for four weeks until further instruction per surgeon. Keep incisions clean and dry wash with soap and water. On this admission patient has been bradycardia heart rate between 42-68 bpm. patient reports recently has been seen by a assistant front desk manager's in [place] given to abnormal EKG in her PCP office instructed patient for her to follow-up with assistant front desk manager's continues to be bradycardia asymptomatic denies shortness a breath, weakness, headache, faint. Post Doctoral Fellow(s): RUN DATE: 02/26/25 [facility] PAGE 1 RUN TIME: [id number] [address] Department of Laboratories CLIA # [id number] Gaming Host: Dori Moreland DO Specimen Report PATIENT: EJ DOMÍNGUEZ ACCT: [id number] LOC: [facility] U: [id number] AGE/SX: 60/F ROOM: 309 RE02/24/[address]: SILVA EUBANKS MD : 1965 BED: 1 DIS: STATUS: ADM Aries TLOC: SPEC: [id number] HALEY: 02/24/25 STATUS: COMP REQ: [id number] RECD: 02/24/[address]: BUBBA DANGELO NP SOURCE: [facility] ENTR: 02/25/25 [facility] DR: TIMO RICHARDS MD [facility]: CLEAN CAT ORDERED: AERO ID & SENS Procedure Result Ni Date-Time AEROBIC ID & SENSITIVITIES Final 02/26/25-925 MRL COLONY DESCRIPTION: DAY 1: COLONY COUNT: >100,000 CFU/ML GRAM POSITIVE COCCI IN CHAINS IDENTIFICATION TO FOLLOW BETA HEMOLTYIC STREPTOCOCCUS GROUP B NO FURTHER WORK-UP DONE COMMENT: BETA STREPTOCOCCUS REMAIN SUSCEPTIBLE TO PENICILLIN COMMENT: NO FURTHER WORK-UP STREP AGALACTIAE GROUP B Test(s) performed by: [facility] [address] [place] [address] @ [facility] Test Performed at: [facility] [address], [place], [place] [employer] Supervisor: Nick Meadows D.O. END OF REPORT Procedure(s): Operative Note: DATE OF PROCEDURE: 02/25/25 PROCEDURE:Laparoscopic appendectomy. ANESTHESIA: General endotracheal. PREOPERATIVE DIAGNOSIS: Appendicitis. POSTOPERATIVE DIAGNOSIS: Acute appendicitis without perforation. DEVICES LEFT IN PLACE: None. FLUID AND BLOOD PRODUCTS: Per anesthesia report. BLOOD LOSS: Minimal. SPECIMENS REMOVED: Appendix. COMPLICATIONS: None immediate. SURGEON: Jez Sher MD. DESCRIPTION OF PROCEDURE: The patient was brought to the operating room and placed on the operating table in supine position where general endotracheal anesthesia was achieved. We then proceeded to prep and drape the abdomen in sterile fashion, Created a transverse incision at the left upper quadrant under direct visualization went in through the abdominal wall with an Optiview trocar. Once inside the abdominal cavity insufflated and obtain a pneumoperitoneum. Under direct visualization placed a origin trocar just above the umbilicus. There was significant amount of omental adhesions at the suprapubic region. This was taken down with the wound device. And once cleared I then placed another 5 mm trocar in the suprapubic position. We then proceeded to evaluate the pelvis. We evaluated the appendix and it has changes of acute appendicitis. We therefore proceeded to release the appendix from all its adhesions using blunt and sharp dissection with a LigaSure and then proceeded to create a window at the base of the appendix with a [place] dissector and divided the mesoappendix with the LigaSure device. Once the base of the appendix was free, we then proceeded to divide the appendix with the Orwell blue load stapler. Placed the appendix into the Endo Catch bag. We inspected the pelvis again and we did not find any signs of an abscess or any other signs of infection. Then, under direct visualization, we proceeded to remove our trocars and there was no bleeding from the abdominal wall. We removed the appendix from the abdomen using the EndoCatch bag and relieved the pneumoperitoneum. We closed the fascia at the umbilicus using a 0-Vicryl stitch in the [id number] fashion and then the skin was closed using a skin stapler. The patient tolerated the procedure well. I was present as well during the entire procedure. All counts were correct x 2 at the end of the procedure. JEZ SHER MD Feb 25, 2025 12:23 Electronically Signed by: JEZ SHER MD02/25/25 1223 Electronically Co-Signed by: Assessment/Plan: DISCHARGED DX'S; Acute appendicitis, POA S/P APPENDECTOMY Suspected UTI, POA STREP AGALACTIAE GROUP B Asymptomatic Bradycardiac Constipation, POA Tobacco dependence, POA] PLAN: [ ] ADMISSION DATE: 02/24/2025 DISCHARGE DATE: 02/26/2025 DISPOSITION: HOME CONDITION: STABLE SKYDIVING INSTRUCTOR(S): GENERAL SURGEON FOLLOW UP APPOINTMENT(S): Dr Carlton one wk, pcp: PROCEDURES: Appendectomy 02/25/2025 IMAGING (S) REPORT ATTACHED TO SUMMARY : MICROBIOLOGY: REPORT ATTACHED TO SUMMARY; ACTIVITY: Ad annie HOME MEDICATIONS remain the same CHANGES ON HOME MEDICATIONS none NEW MEDICATIONS [id number] Tylenol as needed for pain every 4 hours Cefdinir 300 Mg Capsule b.i.d. for five days TEACHING: Encouraged to continue ambulating. No heavy lifting greater than 10 lb for four weeks until further instructions from general surgeon, keep incisions clean and dry wash with soap and water. Diet avoid greasy foods. EMERGENCY INSTRUCTIONS: THE PATIENT WAS INSTRUCTED TO PRESENT TO THE NEAREST EMERGENCY DEPARTMENT OR CALL 911 SHOULD THEIR SYMPTOMS RETURN OR WORSEN. Home Medications: Reported Medications Rosuvastatin Calcium (Rosuvastatin Calcium) 10 Mg Tablet, 10 MG PO HS, TAB 02/24/25 New Medications: Cefdinir (Cefdinir) 300 Mg Capsule 1 CAP PO BID for 5 Days, #10 CAP 0 Refills Continued Medications: Rosuvastatin Calcium (Rosuvastatin Calcium) 10 Mg Tablet 10 MG PO HS, TAB Time spent arranging discharge: 31-60 minutes ATTESTATION BY PHYSICIAN I have seen and examined the patient. I reviewed the documentation, medical decision making, and treatment plan as noted by the mid-level provider above. I agree with the findings and plan of care. DORIAN APODACA MD, ELIZABETH NP Feb 26, 2025 10:30
[2025-02-26 12:00] VITALS: BP 106/53; PULSE 66; RESP 18; TEMP 98.1
--- NOTE | 2025-02-26 13:40 | NUR ---
DC NOTE DC INSTRUCTIONS AND PHONE NUMBER TO SURGEON TO CALL AND MAKE APPOINTMENT DUE TO PT IS HERE VISITING AND IS FROM [place]. VERBALIZED UNDERSTANDING. PIV REMOVED, CATHETER INTACT AND DENIES ANY PAIN OR DISCOMFORT, EAGER TO BE DC. PT IS WHEELED DOWNSTAIRS WITH ROUSTABOUT CREW PUSHER INTO VIA PRIVATE CAR. NO FURTHER COMMENTS OR CONCERNS AT THIS TIME.
== END 2025-02-26 13:40 | disposition home or self-care (01) ==
LOC: EDH 16:02 → EDHIP 19:17 → INTOOBSV 19:17 → 3BH 20:59
PROVIDERS: ADMIT Internal Medicine; ATTEND Internal Medicine
DX: K35.80 Unspecified acute appendicitis (principal); K59.00 Constipation, unspecified; E78.00 Pure hypercholesterolemia, unspecified; K66.0 Peritoneal adhesions (postprocedural) (postinfection); K57.30 Diverticulosis of large intestine without perforation or abscess without bleeding; F17.210 Nicotine dependence, cigarettes, uncomplicated; Z90.710 Acquired absence of both cervix and uterus; Z98.82 Breast implant status
CPT/HCPCS: 96365; 96366 ×4; 96375 ×3; 99284; 84484; 80048 ×2; 83690; 85025 ×3; 87086; 81001; 36415 ×3; 74177; 93005 ×2; 44970; 96376 ×2; 83735 ×2; 84100; 85610; 85730; 86850; 86900; 86901; 88304; 80053; J2270; J7030 ×2; J1885 ×2; J2543 ×5; Q9967; G0378 ×21; J7120; J3490 ×4; J3010 ×2; J1100; J2250; J2704; J2405 ×2; J2710; J0665; J2765; J2371; A6206; C1769 ×3; A4649 ×3; A4930 ×2; A4223; A4222; A4216; 96361; 96374; 99285